=== PATIENT | female | born 1965 | race Caucasian/White ===

== ENCOUNTER 2020-11-18 00:55 | Emergency (ER) | payer BC ==
--- NOTE | 2020-11-18 01:20 | EDM.PDOC ---
ED HPI GENERAL MEDICAL PROBLEM - General Chief Complaint: Skin Complaint Stated Complaint: CUT ON LEFT ANKLE Time Seen by Provider: 11/18/20 01:00 - History of Present Illness INITIAL COMMENTS - FREE TEXT/NARRATIVE: 54-year-old female presenting with left ankle pain. Patient states that she was up on a ladder today. She did so cut her varela with a lawnmower blade earlier in the day. She came down from the ladder and had a very minimal discomfort in the left ankle. However she was able to ambulate fine she had very minimal symptoms until after her shower when she developed very severe left ankle pain that does not radiate and makes her unable to bear weight. It worsens with palpation and with attempted ambulation. No fevers no radiation up the calf. Patient otherwise feels well. Even the pressure of a pillow caused significant discomfort and some throbbing pain. - Related Data Allergies Allergy/AdvReac Type Severity Reaction Status Date / Time ibuprofen Allergy Anaphylactic Verified 11/18/20 01:12 Shock Home Meds: Home Meds Tretinoin [Retin-A] 1 dose TOP ASDIRECTED 04/18/18 [History] Past Medical History - Past Health History Medical/Surgical History: Denies Medical/Surgical History HEENT History: Reports: Allergic Rhinitis, Other (See Below) Other HEENT History: uses one contact lens, has one upper dental implant Gastrointestinal History: Reports: None ED MANAGER History: Reports: Dermatologic History: Reports: Other (See Below) Other Dermatologic History: Actinic keratosis and acne - Past Surgical History Head Surgeries/Procedures: Reports: None HEENT Surgical History: Reports: Naso-Sinus Surgery GI Surgical History: Reports: Appendectomy Social & Family History - Family History Family Medical History: No Pertinent Family History - Tobacco Use Tobacco Use Status *Q: Never Tobacco User - Recreational Drug Use Recreational Drug Use: No ED ROS GENERAL - Review of Systems Review Of Systems: See Below Free Text/Narrative/Comment: General: No fever. Skin: Per HPI Neck: No neck stiffness. Respiratory: No shortness of breath. Cardiac: No chest pain. Gastrointestinal: No nausea, vomiting or abdominal pain. Musculoskeletal: Per HPI Neurologic: No headache. ED EXAM, SKIN/RASH Exam: See Below Text/Narrative:: General Appearance: No acute distress, appears comfortable Skin: 2, 2 mm abrasions on the left anterior varela no surrounding swelling no surrounding erythema no discharge no tenderness HEENT: Normocephalic/atraumatic, sclera anicteric, mucous membranes moist Back: Normal Musculoskeletal: 2+ left DP pulse, clinical joint effusion with joint line tenderness at the ankle joint significant tenderness over the lateral malleolus and the ATFL as well. Some mild tenderness medially but no tenderness with deltoid ligament testing. Patient does have significant discomfort with ATFL and lateral ligament complex testing. However ankle joint appears stable. There is no erythema there is no warmth along the ankle joint but there is some significant tenderness. Along with clinical joint effusion. There is no tenderness in the calf. Neurologic: Awake, alert, no obvious deficits, moving all extremities Psychiatric: Appropriate, cooperative Course - Vital Signs Last Recorded V/S: Last Vital Signs Temp 97.7 F 11/18/20 01:09 Pulse 85 11/18/20 01:09 Resp 20 11/18/20 01:09 BP 107/80 11/18/20 01:09 Pulse Ox 100 11/18/20 01:09 - Orders/Labs/Meds Orders: Active Orders 24 hr Category Date Time Status Ankle Min 3V Lt [CR] Stat Exams 11/18/20 01:13 Taken Departure - Departure Time of Disposition: 01:51 Disposition: Home, Self-Care 01 Condition: Good Clinical Impression: Ankle sprain - Discharge Information *PRESCRIPTION DRUG MONITORING PROGRAM REVIEWED*: Not Applicable *COPY OF PRESCRIPTION DRUG MONITORING REPORT IN PATIENT SCARLETT: Not Applicable Instructions: Ankle Sprain, Elastic Bandage and RICE Therapy Referrals: Jonel Hill MD [Primary Care Provider] - 1 Week Forms: ED Department Discharge Additional Instructions: Do not wear the Kenneth wrap at night when you sleep after tonight. Your symptoms should improve in the next few days. If your symptoms worsen or new symptoms develop please follow-up with your primary care doctor or return to the ER. The following information is given to patients seen in the emergency department who are being discharged to home. This information is to outline your options for follow-up care. We provide all patients seen in our emergency department with a follow-up referral. The need for follow-up, as well as the timing and circumstances, are variable depending upon the specifics of your emergency department visit. If you don't have a primary care physician on staff, we will provide you with a referral. We always advise you to contact your personal physician following an emergency department visit to inform them of the circumstance of the visit and for follow-up with them and/or the need for any referrals to a consulting specialist. The emergency department will also refer you to a specialist when appropriate. This referral assures that you have the opportunity for follow-up care with a specialist. All of these measure are taken in an effort to provide you with optimal care, which includes your follow-up. Under all circumstances we always encourage you to contact your private physician who remains a resource for coordinating your care. When calling for follow-up care, please make the office aware that this follow-up is from your recent emergency room visit. If for any reason you are refused follow-up, please contact the [facility] Emergency Department at and asked to speak to the emergency department charge nurse. Sepsis Event Note (ED) - Evaluation Sepsis Screening Result: No Definite Risk - Focused Exam Vital Signs: Vital Signs Temp Pulse Resp BP Pulse Ox 11/18/20 01:09 97.7 F 85 20 107/80 100 - My Orders Last 24 Hours: My Active Orders 11/18/20 01:13 Ankle Min 3V Lt [CR] Stat - Assessment/Plan Last 24 Hours: My Active Orders 11/18/20 01:13 Ankle Min 3V Lt [CR] Stat Assessment:: 54-year-old female presenting with left ankle pain. I would favor ankle sprain given the significant discomfort with lateral ligament testing. Patient is able to actively range the ankle and so I do not have a clinical concern for septic arthritis. Gout and pseudogout considered but patient has no history of this no identifiable risk factors for this and there is no erythema. There is significant tenderness and associated joint effusion. X-rays pending. If this is unremarkable then would plan for Kenneth wrap ice elevation and anti-inflammatories. X-ray negative for fracture I would favor ankle sprain I do not have a clinical concern for DVT. Kenneth wrap applied crutches provided patient with follow-up with her primary care provider. Return precautions discussed and understood.
--- NOTE | 2020-11-18 02:19 | CR ---
INDICATION: Left ankle. TECHNIQUE: X-ray left ankle, 3 views. COMPARISON: None available. FINDINGS: The alignment is normal. The overlying soft tissues unremarkable. Negative for acute fracture or dislocation. The ankle mortise is intact. IMPRESSION: Negative for acute fracture or dislocation. Dictated by Silvia Lin MD @ 11/18/2020 2:18:[address] Silvia Lin @ Nov 18 2020 2:18AM
== END 2020-11-18 02:14 | disposition home or self-care (01) ==
LOC: MW.ED 00:55
DX: S93.402A Sprain of unspecified ligament of left ankle, initial encounter (principal); S80.812A Abrasion, left lower leg, initial encounter; Z88.8 Allergy status to other drugs, medicaments and biological substances; W26.8XXA Contact with other sharp object(s), not elsewhere classified, initial encounter
CPT/HCPCS: 73610-26-LT; 73610-LT; 99282; 99283